=== PATIENT | female | born 1935 | race Caucasian/White ===

== ENCOUNTER 2018-01-03 08:13 | Day surgery (SDC) | payer MEDICARE ==
[~2018-01-03 08:13] MED LIST: BUPIVACAINE HCL 0.75% INJ/PF (7.5 MG/1 ML) 10 ML SDV OD PRN; KETOROLAC TROMETHAMINE 0.45% 4 DROP/0.4 ML DROPERETTE OD PRN; LIDOCAINE 4% INJ/PF (40 MG/ML) 5 ML AMPUL OD PRN
[2018-01-03] MEDS: CYCLOPENTOLATE 0.2%/PHENYLEPHRINE 1% OPH SOLN 2 ML OD PRN ×3 (08:39→08:59)
[2018-01-03] MEDS: TROPICAMIDE 1% OPH SOLN 3 ML OD PRN ×3 (08:39→08:59)
[2018-01-03] MEDS: BESIFLOXACIN HCL 0.6% OPH SUSP 5 ML BOTTLE OD PRN ×4 (08:39→09:58)
[2018-01-03] MEDS: TETRACAINE HCL 0.5% OPH SOLN 0.6 ML DROPERETTE OD PRN ×2 (08:40→08:59)
[2018-01-03] MEDS ORDERED: MIDAZOLAM 2 MG/2 ML INJ ONE (09:05)
[2018-01-03] MEDS: EPINEPHRINE INJ/PF 1 MG/1 ML AMPULE ONE ×2 (09:37)
[2018-01-03] MEDS: LIDOCAINE 1%/PHENYLEPHRINE 1.5% 1 ML VIAL ONE ×2 (09:37)
[2018-01-03] MEDS: CHONDR SU A NA/HYALUR INTRAOC KIT (SURGICARE) ONE ×2 (09:37)
--- NOTE | 2018-01-03 12:40 | [facility] OPERATIVE REPORT E ---
[facility] Operative Report NAME: CHRISTIAN FELICIANO AGE: 82Y DATE OF SURGERY: 01/03/2018 ROOM: PREOPERATIVE DIAGNOSES: 1. Cataract, right eye. 2. Pupil miosis, right eye. POSTOPERATIVE DIAGNOSES: 1. Cataract, right eye. 2. Pupil miosis, right eye. OPERATION: Complex cataract extraction with intraocular lens implant, right eye. SURGEON: FRIDA GONCALVES M.D. ANESTHESIA: Topical with MAC. INDICATIONS FOR SURGERY: Inability to read and see TV. Best corrected visual acuity 20/200. 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 PROCEDURE: The patient was brought to the operating room and placed on the operating table. Topical anesthesia was administered. This consisted of instrument wipe pledgets soaked in a solution of 4% Xylocaine mixed with 0.75% Marcaine in a 1:2 ratio. A 2 x 1 cm pledget was placed in the superior fornix. A 1 x 1 cm pledget was placed in the inferior fornix. The eye was patched shut for 5 minutes. The patch and pledgets were removed. The eye was sterilely prepped and draped in the usual manner. A lid speculum was placed in the eye. A 4-0 black silk suture was placed around the superior and inferior rectus muscles to use as traction. A conjunctival peritomy was made at the 10 o'clock position. Hemostasis was attained with bipolar cautery. A posterior limbal groove was created using a crescent knife and dissected anteriorly towards the cornea. A sharp point blade was used to create a paracentesis site at the 2 o'clock position. A 2.4 mm keratome was used to enter the anterior chamber through the groove. Then 0.5 mL of 1% nonpreserved lidocaine was injected into the anterior chamber. Viscoelastic was injected into the anterior chamber. Pupil dilation was approximately 4.5 mm. A Malyugin Ring was placed stabilizing the iris. An anterior capsulotomy was performed using Utrata forceps in a capsulorrhexis fashion. Hydrodissection and hydrodelineation were performed. Phacoemulsification was performed in a tlgcda-yvc-sihcjyb technique. Total phaco time was 34.13 CDE. Following this, the I/A unit was used to remove residual cortex. Viscoelastic was injected into the capsular bag. Intraocular lens model SN60WF, 18.0 diopters, serial number [id number], was placed in the capsular bag. The Malyugin ring haptics were removed and the ring was removed from the eye. The I/A unit was used to remove residual viscoelastic. The wound was seen to be watertight under high and low pressure and no sutures were placed. The 4-0 black silk sutures and lid speculum were removed. The eye was shielded after Besivance drops were placed. The patient tolerated the procedure well and was sent to the recovery room in good condition. DICTATING PHYSICIAN: FRIDA GONCALVES M.D. [id number] PHY#: [id number] ID: [id number] JOB#: [id number] ACCT: [id number] cc:FRIDA GONCALVES M.D. >
--- NOTE | 2018-01-03 12:45 | [facility] DISCHARGE SUMMARY E ---
[facility] Discharge Summary NAME: CHRISTIAN FELICIANO AGE: 82Y ADMITTED: 01/03/2018 DISCHARGED: 01/03/2018 FINAL DIAGNOSES: 1. Cataract, right eye. 2. Pupil miosis, right eye. HOSPITAL COURSE: The patient is an 82-year-old lady who underwent uneventful complex cataract extraction with intraocular lens implant, right eye, on 01/03/2018. She will be discharged to home. She was instructed to resume preoperative medications; to take Tylenol as needed for discomfort; to keep her eye shielded; to use Besivance and Durezol at 3 p.m. and 8 p.m.; and to follow up in my office in 1 day. DICTATING PHYSICIAN: FRIDA GONCALVES M.D. [id number] PHY#: [id number] ID: [id number] JOB#: [id number] ACCT: [id number] cc:FRIDA GONCALVES M.D. >
== END 2018-01-03 10:36 | disposition home or self-care (01) ==
LOC: SC 08:13
PROVIDERS: ATTEND Ophthalmology
DX: H25.811 Combined forms of age-related cataract, right eye (principal); H57.03 Miosis; I10 Essential (primary) hypertension; E78.00 Pure hypercholesterolemia, unspecified; E07.9 Disorder of thyroid, unspecified; Z87.891 Personal history of nicotine dependence; Z88.8 Allergy status to other drugs, medicaments and biological substances; Z88.6 Allergy status to analgesic agent; Z79.02 Long term (current) use of antithrombotics/antiplatelets; I69.854 Hemiplegia and hemiparesis following other cerebrovascular disease affecting left non-dominant side
CPT/HCPCS: 142; J0171; J2250; J2370; J3490; V2632

== ENCOUNTER 2018-01-24 08:21 | Day surgery (SDC) | payer MEDICARE ==
[2018-01-24] MEDS: TETRACAINE HCL 0.5% OPH SOLN 0.6 ML DROPERETTE OS PRN ×2 (09:07→09:36)
[2018-01-24] MEDS: TROPICAMIDE 1% OPH SOLN 3 ML OS PRN ×3 (09:08→09:33)
[2018-01-24] MEDS: CYCLOPENTOLATE 0.2%/PHENYLEPHRINE 1% OPH SOLN 2 ML OS PRN ×3 (09:08→09:33)
[2018-01-24] MEDS: BESIFLOXACIN HCL 0.6% OPH SUSP 5 ML BOTTLE OS PRN ×4 (09:09→10:21)
[2018-01-24] MEDS: LIDOCAINE 4% INJ/PF (40 MG/ML) 5 ML AMPUL OS PRN ×2 (09:55)
[2018-01-24] MEDS: BUPIVACAINE HCL 0.75% INJ/PF (7.5 MG/1 ML) 10 ML SDV OS PRN ×2 (09:55)
[2018-01-24] MEDS ORDERED: FENTANYL CITRATE INJ/PF 100 MCG/2 ML AMPUL ONE (09:59)
[2018-01-24] MEDS ORDERED: MIDAZOLAM 2 MG/2 ML INJ ONE (09:59)
[2018-01-24] MEDS: EPINEPHRINE INJ/PF 1 MG/1 ML AMPULE ONE ×2 (10:03)
[2018-01-24] MEDS: CHONDR SU A NA/HYALUR INTRAOC KIT (SURGICARE) ONE ×2 (10:03)
[2018-01-24] MEDS: LIDOCAINE 1% INJ-PF (10 MG/ML) 30 ML SDV ONE ×3 (10:05→10:07)
--- NOTE | 2018-01-24 10:41 | [facility] OPERATIVE REPORT E ---
[facility] Operative Report NAME: CHRISTIAN FELICIANO AGE: 82Y DATE OF SURGERY: 01/24/2018 ROOM: PREOPERATIVE DIAGNOSIS: Cataract, left eye. POSTOPERATIVE DIAGNOSIS: Cataract, left eye. PROCEDURE PERFORMED: Phacoemulsification with posterior chamber intraocular lens, left eye. SURGEON: FRIDA GONCALVES M.D. ANESTHESIA: Topical with MAC. DESCRIPTION OF PROCEDURE: The patient was brought to the operating room and placed on the operative table. Following tetracaine drops, topical anesthesia was administered. This consisted of instrument wipe pledgets soaked in a solution of 4% Xylocaine mixed with 0.75% Marcaine in a 1:2 ratio. A 2 x 1 cm pledget was placed in the superior fornix. A 1 x 1 cm pledget was placed in the inferior fornix. The eye was patched shut for 5 minutes. The patch was removed. The eye was sterilely prepped and draped in the usual manner. Lid speculum was placed in the eye. The pledgets were removed, 4-0 black silk sutures were placed around the superior and the inferior rectus muscles to be used as traction. A conjunctival peritomy was made at the 10 o'clock position. Hemostasis was obtained with bipolar cautery. A posterior limbal groove was created using a crescent knife and dissected anteriorly towards the cornea. A sharp point blade was used to create a paracentesis site at the 2 o'clock position. A 2.4 mm keratome was used to enter the anterior chamber through the groove. Viscoelastic was injected into the anterior chamber. An anterior capsulotomy was performed using Utrata forceps in a capsulorrhexis fashion. Hydrodissection and hydrodelineation were performed. Phacoemulsification was performed in wegtey-jau-rsfhwua technique. Total phaco time, 13.10 CDE seconds. Following this, the I/A unit was used to remove residual cortex. Viscoelastic was injected into the capsular bag. Intraocular lens Model SN60WF, 19.0 diopters, serial number [id number] was placed in the capsular bag. The I/A unit was used to remove residual viscoelastic. The wound was seen to be watertight under high and low pressure, and no sutures were placed. The intraocular lens was well centered. The pressure was adjusted in the eye to normal pressure. The 4-0 black silk sutures and lid speculum were removed. The eye was shielded after Besivance drops were placed. The patient tolerated the procedure well and was sent to the recovery room in good condition. DICTATING PHYSICIAN: FRIDA GONCALVES M.D. [id number] PHY#: [id number] ID: [id number] JOB#: [id number] ACCT: [id number] cc:FRIDA GONCALVES M.D. >
--- NOTE | 2018-01-24 10:41 | [facility] DISCHARGE SUMMARY E ---
[facility] Discharge Summary NAME: CHRISTIAN FELICIANO AGE: 82Y ADMITTED: 01/24/2018 DISCHARGED: 01/24/2018 HOSPITAL COURSE: The patient is an 82-year-old lady who underwent uneventful cataract extraction with intraocular lens implant, left eye, on 01/24/2018. She will be discharged to home. She was instructed to resume preoperative medications, to take Tylenol as needed for discomfort, to keep her eye shielded, to use Pred Forte and Vigamox at 3:00 p.m. and 8:00 p.m., and to follow up in my office in 1 day. DICTATING PHYSICIAN: FRIDA GONCALVES M.D. [id number] PHY#: [id number] ID: [id number] JOB#: [id number] ACCT: [id number] cc:FRIDA GONCALVES M.D. >
== END 2018-01-24 11:03 | disposition home or self-care (01) ==
LOC: SC 08:21
PROVIDERS: ATTEND Ophthalmology
DX: H25.812 Combined forms of age-related cataract, left eye (principal); H57.03 Miosis; Z96.1 Presence of intraocular lens; I10 Essential (primary) hypertension; Z86.73 Personal history of transient ischemic attack (TIA), and cerebral infarction without residual deficits; Z88.8 Allergy status to other drugs, medicaments and biological substances; Z88.6 Allergy status to analgesic agent
CPT/HCPCS: 66984; V2632; J2250; J3490 ×5; J0171; J3010; 142

== ENCOUNTER 2019-07-26 10:58 | Emergency (ER) | payer MEDICARE ==
--- NOTE | 2019-07-26 11:52 | ER Document Report ---
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 Patient had just gone to the bathroom, was walking down the [place] in her house when she felt herself "passing out". States that she did lose consciousness struck the right face on a dresser and then went down to the floor. Denies hip or pelvis pain. Denies extremity injuries. Complains of pain to the right face and head, mild neck pain. No chest pain no shortness of breath. States she did not have a sensation of heart beating irregularly or quickly prior to passing out I have greeted and performed a rapid initial assessment of this patient. A comprehensive ED assessment and evaluation of the patient, analysis of test results and completion of the medical decision making process will be conducted by additional ED providers PHYSICAL EXAMINATION: GENERAL: Well-appearing, well-nourished and in mild acute distress. HEAD: Bruising and soft tissue swelling noted to the right parietal, temporal and facial region, normocephalic. EYES: sclera anicteric, conjunctiva are normal. ENT: Moist mucous membranes. NECK: Normal range of motion. Mild tenderness over the lateral cervical neck on the right side LUNGS: Normal work of breathing, clear to auscultation HEART: 2+ radial pulses bilaterally, regular rate and rhythm ABD: limited by positioning for exam in triage. EXTREMITIES: no pitting or edema. No cyanosis. No hip or pelvic discomfort on compression NEUROLOGICAL: No focal neurological deficits. Moves all extremities spontaneously and on command. PSYCH: Normal mood, normal affect. SKIN: Warm, Dry, normal turgor, no rashes or lesions noted. TRAVEL OUTSIDE OF THE [place] IN LAST 30 DAYS: No - Related Data Allergies/Adverse Reactions: ibuprofen Allergy (Verified 07/26/19 11:38) LIPS SWELL losartan Adverse Reaction (Intermediate, Verified 07/26/19 11:38) JOINT PAIN Past Medical History - Past Medical History Cardiac Medical History: Reports: Hx Hypercholesterolemia, Hx Hypertension Denies: Hx Heart Attack Pulmonary Medical History: Denies: Hx Asthma Neurological Medical History: Reports: Hx Cerebrovascular Accident - 3-4 YEARS AGO NO RESIDUAL. Denies: Hx Seizures GI Medical History: Denies: Hx Hepatitis, Hx Hiatal Hernia, Hx Ulcer Infectious Medical History: Denies: Hx Hepatitis Past Surgical History: Denies: Hx Mastectomy, Hx Open Heart Surgery, Hx Pacemaker - Immunizations Hx Diphtheria, Pertussis, Tetanus Vaccination: Yes Physical Exam - Vital signs Vitals: Temp Pulse Resp BP Pulse Ox 98.2 F 78 18 187/109 H 93 07/26/19 11:04 07/26/19 11:04 07/26/19 11:04 07/26/19 11:04 07/26/19 11:04 Course - Vital Signs Vital signs: Temp Pulse Resp BP Pulse Ox 98.2 F 78 18 157/90 H 93 07/26/19 11:04 07/26/19 11:04 07/26/19 11:04 07/26/19 11:43 07/26/19 11:04 Doctor's Discharge - Discharge Referrals: NEREYDA RAYGOZA MD [Primary Care Provider] - Follow up as needed
[2019-07-26 12:25] LABS: ABSOLUTE EOSINOPHILS # (AUTO) 0.1 10^3/uL (0.0-0.6); ABSOLUTE MONOCYTES (AUTO) 0.3 10^3/uL (0.1-1.4); BASOPHILS % (AUTO) 0.9 % (0-2); EOSINOPHILS % (AUTO) 1.2 % (0-6); HEMATOCRIT 42.7 % (36.0-47.0); HEMOGLOBIN 14.4 g/dL (12.0-15.5); LYMPHOCYTES % (AUTO) 22.9 % (13-45); MEAN CORPUSCULAR HEMOGLOBIN 29.3 pg (27.0-33.4); MEAN CORPUSCULAR HGB CONC 33.7 g/dL (32.0-36.0); MEAN CORPUSCULAR VOLUME 87 fl (80-97); MONOCYTES % (AUTO) 7.3 % (3-13); PLATELET COUNT 236 10^3/uL (150-450); RED BLOOD COUNT 4.92 10^6/uL (3.72-5.28); RED CELL DISTRIBUTION WIDTH 14.3 % (11.5-14.0); SEGMENTED NEUTROPHILS % (AUTO) 67.7 % (42-78); TOTAL CELLS COUNTED % (AUTO) 100 %; WHITE BLOOD COUNT 4.4 10^3/uL (4.0-10.5)
[2019-07-26 12:35] LABS: INTERNATIONAL RATION (INR) 0.98
[2019-07-26 12:48] LABS: ALBUMIN 4.6 g/dL (3.5-5.0); ALKALINE PHOSPHATASE 114 U/L (38-126); ANION GAP 12 (5-19); ASPARTATE AMINO TRANSFERASE 37 U/L (14-36); BILIRUBIN,DIRECT 0.4 mg/dL (0.0-0.4); BILIRUBIN,TOTAL 0.6 mg/dL (0.2-1.3); BLOOD UREA NITROGEN 23 mg/dL (7-20); CALCIUM 10.7 mg/dL (8.4-10.2); CARBON DIOXIDE 28 mmol/L (22-30); CHLORIDE 100 mmol/L (98-107); GLUCOSE 134 mg/dL (75-110); TOTAL PROTEIN 8.4 g/dL (6.3-8.2)
--- NOTE | 2019-07-26 13:05 | RADIOLOGY REPORT (SQ) ---
EXAM DESCRIPTION: CHEST 2 VIEWS COMPLETED DATE/TIME: 07/26/2019 12:37 pm REASON FOR STUDY: syncope COMPARISON: None. EXAM PARAMETERS: NUMBER OF VIEWS: Two views. TECHNIQUE: PA and lateral views of the chest were obtained.. RADIATION DOSE: NA LIMITATIONS: none FINDINGS: LUNGS AND PLEURA: Prominence of the interstitium without a superimposed consolidation, ple ural effusion or pneumothorax. MEDIASTINUM AND HILAR STRUCTURES: Hiatal hernia. HEART AND VASCULAR STRUCTURES: The cardiac silhouette and pulmonary vasculature are within normal spaulding its. BONES: S shaped scoliosis of the thoracolumbar spine. HARDWARE: None in the chest. OTHER: No other finding. IMPRESSION: No acute cardiopulmonary process. TECHNICAL DOCUMENTATION: JOB ID: [id number] 2010 [employer]- All Rights Reserved Reading location - IP/workstation name: [email or web address]
--- NOTE | 2019-07-26 13:10 | RADIOLOGY REPORT (SQ) ---
EXAM DESCRIPTION: CT HEAD WITHOUT COMPLETED DATE/TIME: 07/26/2019 12:40 pm REASON FOR STUDY: syncope COMPARISON: None. TECHNIQUE: Axial images acquired through the brain without intravenous contrast. Images reviewed wi th bone, brain and subdural windows. Additional sagittal and coronal reconstructions were generated. Images stored on PACS. All CT scanners at this facility use dose modulation, iterative reconstruction, and/or weight based d osing when appropriate to reduce radiation dose to as low as reasonably achievable (ALARA). [facility]: Dose Right [facility]: CareDose [facility]: Dose Right [facility]: Teradose 4D [facility]: [employer] RADIATION DOSE: CT Rad equipment meets quality standard of care and radiation dose reduction techniq ues were employed. CTDIvol: 53.2 mGy. DLP: 964 mGy-cm. LIMITATIONS: None. FINDINGS: There is diffuse age-appropriate cerebral and cerebellar volume loss. The caliber the mar tricles is concordant with the degree of sulcation. The confluent areas of hypoattenuation within th e supratentorial periventricular and subcortical white matter could represent the sequela of chronic microvascular ischemia. There is no acute intracranial hemorrhage, vascular territorial infarct, extra-axial fluid collection , mass effect or midline shift. The mack-white matter differentiation is preserved. There is no eff acement of the cerebral sulci or basal subarachnoid cisterns. The caliber the ventricles is concordant with the degree of sulcation. The globes are aphakic. The orbits are intact. There is an empty sella. There is no fracture of the calvarium. IMPRESSION: No acute intracranial abnormality. EVIDENCE OF ACUTE STROKE: NO. COMMENT: Quality ID # [id number]: Final reports with documentation of one or more dose reduction techniques (e.g., Automated exposure control, adjustment of the mA and/or kV according to patient size, use of iterative reconstruction technique) TECHNICAL DOCUMENTATION: JOB ID: [id number] 2010 [employer]- All Rights Reserved Reading location - IP/workstation name: [email or web address]
--- NOTE | 2019-07-26 13:18 | RADIOLOGY REPORT (SQ) ---
EXAM DESCRIPTION: CT CERVICAL SPINE WITHOUT COMPLETED DATE/TIME: 07/26/2019 12:40 pm REASON FOR STUDY: trauma COMPARISON: None. TECHNIQUE: Axial images acquired through the cervical spine without intravenous contrast. Images re viewed with lung, soft tissue and bone windows. Reconstructed coronal and sagittal MPR images review ed. Images stored on PACS. All CT scanners at this facility use dose modulation, iterative reconstruction, and/or weight based d osing when appropriate to reduce radiation dose to as low as reasonably achievable (ALARA). [facility]: Dose Right [facility]: CareDose [facility]: Dose Right [facility]: Teradose 4D [facility]: [employer] RADIATION DOSE: CT Rad equipment meets quality standard of care and radiation dose reduction techniq ues were employed. CTDIvol: 15.0 mGy. DLP: 249 mGy-cm. LIMITATIONS: None. FINDINGS: ALIGNMENT: Grade 1 anterolisthesis of C3 relative to C4, C4 relative to C5 and C5 relative to C6. There is no craniocervical or atlantoaxial dissociation. MINERALIZATION: Normal. VERTEBRAL BODIES: The cervical vertebral body heights are preserved. There is no fracture. DISCS: Evaluation of the spinal canal for stenosis is limited due to the absence of intrathecal contr ast. The C5-C6 intervertebral disc space is narrowed and there is associated endplate sclerosis, sub chondral cyst formation and endplate osteophyte formation. FACETS, LATERAL MASSES, POSTERIOR ELEMENTS: The left C2-C3 facet joints are fused. There is moderate bilateral osteophytic stenosis at C5-C6 due to a combination of facet joint degeneration and uncover tebral hypertrophy. HARDWARE: None in the spine. VISUALIZED RIBS: No fractures. LUNG APICES AND SOFT TISSUES: The thyroid gland is heterogeneous. OTHER: No other finding. IMPRESSION: No acute fracture or malalignment of the cervical spine. TECHNICAL DOCUMENTATION: JOB ID: [id number] Quality ID # [id number]: Final reports with documentation of one or more dose reduction techniques (e.g., Au tomated exposure control, adjustment of the mA and/or kV according to patient size, use of iterative reconstruction technique) 2010 [employer]- All Rights Reserved Reading location - IP/workstation name: [email or web address]
--- NOTE | 2019-07-26 15:50 | ER Document Report ---
ED General - General Chief Complaint: Fall Injury Stated Complaint: FALL/FACIAL PAIN Time Seen by Provider: 07/26/19 11:39 Primary Care Provider: NEREYDA RAYGOZA MD [Primary Care Provider] - Follow up as needed TRAVEL OUTSIDE OF THE [place] IN LAST 30 DAYS: No - HPI Notes: Patient is an 83-year-old female who presents to the emergency department for evaluation after syncopal episode. She got up to go to the bathroom in the middle the night. She had a large bowel movement. She was walking back to her bed at her granddaughter's house when she became dizzy and had a syncopal episode. She does not recall the exact circumstances of her fall, but did sustain a bruise to the right side of her face. She denied any chest pain, palpitations, shortness of breath precipitated the fall. According to granddaughter she is been having 4-6 episodes of diarrhea daily. This is been ongoing since she moved into the granddaughter's house. She is been under a significant amount of stress, has had anxiety over the fact that her home is being remodeled because of significant mold and water damage. The patient denies any difficulty seeing, speaking, swallowing. She is moving her arms and legs without difficulty. She has been taking her medications as prescribed, granddaughter believes that this has only been happening recently. She is not had any fevers or chills. She is not been on any recent antibiotic therapy. No exotic travel as of late. - Related Data Allergies/Adverse Reactions: ibuprofen Allergy (Verified 07/26/19 11:38) LIPS SWELL losartan Adverse Reaction (Intermediate, Verified 07/26/19 11:38) JOINT PAIN Home Medications: Plavix 75 mg daily, bisoprolol/HCTZ 2.5/6.25 mg daily, benaz epril HCL unknown dose daily, atorvastatin 10 mg daily Past Medical History - General Information source: Patient, Relative - Social History Smoking Status: Former Smoker Chew tobacco use (# tins/day): No Frequency of alcohol use: None Drug Abuse: None Family History: Reviewed & Not Pertinent Patient has suicidal ideation: No Patient has homicidal ideation: No - Past Medical History Cardiac Medical History: Reports: Hx Hypercholesterolemia, Hx Hypertension Denies: Hx Heart Attack Pulmonary Medical History: Denies: Hx Asthma Neurological Medical History: Reports: Hx Cerebrovascular Accident - 3-4 YEARS AGO NO RESIDUAL. Denies: Hx Seizures GI Medical History: Denies: Hx Hepatitis, Hx Hiatal Hernia, Hx Ulcer Infectious Medical History: Denies: Hx Hepatitis Past Surgical History: Denies: Hx Mastectomy, Hx Open Heart Surgery, Hx Pacemaker - Immunizations Hx Diphtheria, Pertussis, Tetanus Vaccination: Yes Review of Systems - Review of Systems Cardiovascular: See HPI Gastrointestinal: See HPI Musculoskeletal: See HPI -: Yes All other systems reviewed and negative Physical Exam - Vital signs Vitals: Temp Pulse Resp BP Pulse Ox 98.2 F 78 18 187/109 H 93 07/26/19 11:04 07/26/19 11:04 07/26/19 11:04 07/26/19 11:04 07/26/19 11:04 - Notes Notes: This is a very pleasant 83-year-old female who appears her stated age in no acute distress. Head is normocephalic. She does have some mild ecchymosis noted in the periorbital region around the right eye. There is no appreciable step-off. No nasal bone tenderness, no nasal septal hematoma. Oral mucosa is moist. No other facial bone tenderness to palpation. Examination of the spine yields no midline tenderness or step-off. No paraspinal musculature tenderness is appreciated. Heart is regular in rhythm, lungs are clear auscultation bilaterally. Abdomen soft, nontender, normoactive bowel sounds. Skin is warm and dry. Peripheral pulses are equal. Posterior calves are nontender. Patient is awake, alert, oriented x3. Cranial nerves II - XII are grossly intact without focal neurological deficits. Strength is plus 5 out of 5 bilateral upper and lower extremities. Sensation is intact. Reflexes symmetrical. Intact welsiy-xgsy-wcosbv, rapid alternating movements, oulg-cu-phwz. Course - Re-evaluation Re-evalutation: 07/26/19 15:52 Patient presents to the emergency department for evaluation. She had initial laboratory investigations and orders as per triage. Her laboratory investigations are largely unremarkable. Her EKG shows no significant changes concerning for ischemia or infarction. Her CT scan of the head, neck, and chest x-ray are all unremarkable. While present in the room, I did perform orthostatics, which were found to be negative. Patient's blood pressure was elevated with my presence in the room. She does have a history of whitecoat hypertension, states this is been a longtime issue with her at her doctor's office. Patient admits she has not seen her primary care provider in over a year. At this point patient is neurologically stable. Certainly make sense that this was vasovagal syncope given her bowel movement just prior to this event. She does not have any risk factors for a more significant infectious diarrhea. She is given instructions on diarrhea and dietary changes that may be helpful. Otherwise, she is to take Tylenol as needed for pain in her face, but at this time she really does not have any. She is to follow-up with her primary care provider tomorrow in regards to her syncopal episode. She is to return to the ED with worsening or new concerning symptoms of any sort. - Vital Signs Vital signs: Temp Pulse Resp BP Pulse Ox 98.2 F 78 27 H 139/50 H 94 07/26/19 11:04 07/26/19 11:04 07/26/19 14:13 07/26/19 14:13 07/26/19 14:13 - Laboratory Result Diagrams: 07/26/19 12:04 07/26/19 12:04 Laboratory results interpreted by me: 07/26/19 07/26/19 12:04 12:04 RDW 14.3 H BUN 23 H Est GFR ( Amer) 56 L Est GFR (MDRD) Non-Af 47 L Glucose 134 H Calcium 10.7 H AST 37 H Total Protein 8.4 H - Diagnostic Test Radiology reviewed: Reports reviewed Radiology results interpreted by me: 07/26/19 15:53 Chest X-Ray 07/26/19 11:49 IMPRESSION: No acute cardiopulmonary process. Head CT 07/26/19 11:49 IMPRESSION: No acute intracranial abnormality. EVIDENCE OF ACUTE STROKE: NO. Cervical Spine CT 07/26/19 11:50 IMPRESSION: No acute fracture or malalignment of the cervical spine. - EKG Interpretation by Me Additional EKG results interpreted by me: 07/26/19 15:54 Sinus mechanism with a rate 86 bpm. Left axis deviation. Nonspecific ST changes, but no acute changes concerning for ischemia or infarction. Discharge - Discharge Clinical Impression: Syncope and collapse Contusion of face Qualifiers: Encounter type: initial encounter Qualified Code(s): S00.83XA - Contusion of other part of head, initial encounter Diarrhea Qualifiers: Diarrhea type: unspecified type Qualified Code(s): R19.7 - Diarrhea, unspecified Condition: Stable Disposition: HOME, SELF-CARE Instructions: Head Injury Precautions ([facility]), Diarrhea, Nonspecific ([facility]), Syncopal Episode ([facility]) Additional Instructions: Continue to take your home medications as prescribed. Stay well-hydrated. Get up slowly as discussed. Please follow-up with your primary care provider as soon as possible. If you develop worsening or new concerning symptoms, or you have any further syncopal episodes, please return immediately to the ER for further evaluation. Referrals: NEREYDA RAYGOZA MD [Primary Care Provider] - Follow up as needed
[2019-07-26 16:16] VITALS: BP 167/95
--- NOTE | 2019-07-26 19:44 | EKG REPORT ---
SEVERITY:- ABNORMAL ECG - SINUS RHYTHM BORDERLINE LEFT AXIS DEVIATION CONSIDER ANTEROSEPTAL INFARCT NONSPECIFIC T ABNORMALITIES, INFERIOR LEADS : Confirmed by: Kinsey Mcgrath MD 26-Jul-2019 19:44:17
== END 2019-07-26 16:10 | disposition home or self-care (01) ==
LOC: ER 10:58
DX: S00.11XA Contusion of right eyelid and periocular area, initial encounter (principal); W19.XXXA Unspecified fall, initial encounter; W22.03XA Walked into furniture, initial encounter; Y93.89 Activity, other specified; Y92.003 Bedroom of unspecified non-institutional (private) residence as the place of occurrence of the external cause; R55 Syncope and collapse; R19.7 Diarrhea, unspecified; E78.00 Pure hypercholesterolemia, unspecified; I10 Essential (primary) hypertension; Z79.02 Long term (current) use of antithrombotics/antiplatelets; Z79.899 Other long term (current) drug therapy; Z88.8 Allergy status to other drugs, medicaments and biological substances; Z87.891 Personal history of nicotine dependence
CPT/HCPCS: 36415; 70450; 71046; 72125; 80053; 84484; 85025; 85610; 93005; 93010; 99284